=== PATIENT | male | born 2005 | race Caucasian/White ===

== ENCOUNTER → 2024-05-04 12:52 | Outpatient (REF) | payer OTHER, SELFPAY | LOC: HWRAD 12:52 | PROVIDERS: ATTENDING PHYSICIAN Family Medicine | DX: R05.3 Chronic cough (principal); R06.09 Other forms of dyspnea; G47.09 Other insomnia; R53.83 Other fatigue; F17.200 Nicotine dependence, unspecified, uncomplicated | CPT/HCPCS: 71046 ==